=== PATIENT | female | born 1945 | race Caucasian/White ===

== ENCOUNTER 2017-08-28 13:49 | Inpatient (IN) | payer MEDICARE, OTHER ==
[~2017-08-28] VITALS: Ht 160 cm; Wt 39.0 kg
[2017-08-28 14:52] LABS: BASOPHILS % (AUTO) 0.6 % (0.0-2.0); EOSINOPHILS % (AUTO) 0.1 % (0.0-7.0); HEMATOCRIT 38.7 % (31.2-41.9); HEMOGLOBIN 12.5 g/dL (10.9-14.3); LYMPHOCYTES # (AUTO) 1.2 K/uL (20.0-40.0); LYMPHOCYTES % (AUTO) 13.8 % (20.5-51.5); MEAN CORPUSCULAR HEMOGLOBIN 30.3 uug (24.7-32.8); MEAN CORPUSCULAR HGB CONC 32 g/dL (32.3-35.6); MEAN CORPUSCULAR VOLUME 94.2 fL (75.5-95.3); MONOCYTES # (AUTO) 0.7 K/uL (2.0-10.0); NEUTROPHILS # (AUTO) 6.8 K/uL (1.8-8.9); NEUTROPHILS % (AUTO) 77.5 % (38.5-71.5); PLATELET COUNT (AUTO) 260 K/uL (179-408); RED BLOOD CELL COUNT(AUTO) 4.11 MIL/uL (3.63-4.92); WHITE BLOOD COUNT (AUTO) 8.8 K/uL (3.8-11.8)
[2017-08-28 14:54] LABS: CARBON DIOXIDE 25 mmol/L (21-32); CHLORIDE 101 mmol/L (98-107); CREATININE 1.1 mg/dL (0.6-1.3); GLUCOSE 80 mg/dL (74-106); POTASSIUM 5.4 mmol/L (3.5-5.1); UREA NITROGEN, BLOOD 23 mg/dL (7-18)
[2017-08-28 14:59] LABS: ALANINE AMINOTRANSFERASE 18 U/L (14-59); ALKALINE PHOSPHATASE 119 U/L (50-136); ASPARTATE AMINOTRANSFERASE 22 U/L (15-37); BILIRUBIN,DIRECT 0.1 mg/dL (0.0-0.2); BILIRUBIN,TOTAL 0.3 mg/dL (0.2-1.0); TOTAL PROTEIN, SERUM 7.7 g/dL (6.4-8.2)
[2017-08-28 15:00] LABS: ACETAMINOPHEN < 2.0 ug/mL (10-30)
[2017-08-28 15:13] LABS: ETHANOL < 3 MG/DL (0-0)
[2017-08-28 17:15] VITALS: BP 116/70
[2017-08-28] MEDS ORDERED: CLONAZEPAM 0.5 MG TABLET PO PRN (17:15)
[2017-08-28] MEDS ORDERED: MAG HYDROX/AL HYDROX/SIMETH 30 ML LIQUID UDC PO PRN (17:15)
[2017-08-28] MEDS ORDERED: MAGNESIUM HYDROXIDE 30 ML LIQUID UDC PO PRN (17:15)
[2017-08-28] MEDS ORDERED: IPRA12.9 IH (18:34)
[2017-08-28] MEDS ORDERED: MORP30TA59 PO (18:34)
[2017-08-28] MEDS ORDERED: OMEP40CA37 PO (18:34)
[2017-08-28] MEDS ORDERED: ALBU18HF2 IH (18:34)
[2017-08-28 19:30] VITALS: BP 121/78
[2017-08-28] MEDS ORDERED: IPRATROPIUM BROMIDE 0.5 MG/2.5 ML NEBU NEB PRN (20:30)
[2017-08-28] MEDS ORDERED: ALBUTEROL SULFATE 8 GM HFA.AER.AD IH PRN (20:30)
[2017-08-28] MEDS ORDERED: ALBUTEROL SULFATE 2.5 MG/ 0.5 ML NEBU NEB PRN (20:45)
[2017-08-28] MEDS: MORPHINE SULFATE SR 15 MG TABLET.SA PO SCH (21:25)
[2017-08-28] MEDS: TEMAZEPAM 7.5 MG CAPSULE PO PRN (22:46)
[2017-08-29] MEDS: PANTOPRAZOLE SODIUM 40 MG TABLET.DR PO SCH (06:20)
[2017-08-29] MEDS: MORPHINE SULFATE SR 15 MG TABLET.SA PO SCH ×3 (06:20→21:23)
[2017-08-29 07:30] VITALS: BP 111/64
[2017-08-29] MEDS: NICOTINE 14 MG/24HR PATCH TD SCH (09:00)
[2017-08-29] MEDS ORDERED: MORPHINE SULFATE SR 30 MG TABLET.SA PO SCH (09:00)
[2017-08-29 15:00] VITALS: BP 124/86
[2017-08-29 19:57] VITALS: BP 120/90
[2017-08-29] MEDS: OLANZAPINE ZYDIS 5 MG TAB.RAPDIS PO SCH (21:14)
[2017-08-30] MEDS: MORPHINE SULFATE SR 15 MG TABLET.SA PO SCH ×3 (06:12→21:34)
[2017-08-30] MEDS: PANTOPRAZOLE SODIUM 40 MG TABLET.DR PO SCH (06:13)
[2017-08-30 09:00] VITALS: BP 130/76
[2017-08-30] MEDS: APIXABAN 5 MG TABLET PO SCH ×2 (09:00→17:00)
[2017-08-30] MEDS: NICOTINE 14 MG/24HR PATCH TD SCH (09:31)
[2017-08-30 16:53] VITALS: BP 105/83
[2017-08-30 20:00] VITALS: BP 117/82
[2017-08-30] MEDS: OLANZAPINE ZYDIS 5 MG TAB.RAPDIS PO SCH (21:34)
[2017-08-30] MEDS: TEMAZEPAM 7.5 MG CAPSULE PO PRN (22:21)
[2017-08-31] MEDS: PANTOPRAZOLE SODIUM 40 MG TABLET.DR PO SCH (06:11)
[2017-08-31] MEDS: MORPHINE SULFATE SR 15 MG TABLET.SA PO SCH ×3 (06:12→22:00)
[2017-08-31 07:30] VITALS: BP 110/80
[2017-08-31] MEDS: APIXABAN 5 MG TABLET PO SCH ×3 (08:18→17:00)
[2017-08-31] MEDS: NICOTINE 14 MG/24HR PATCH TD SCH (09:00)
[2017-08-31 15:29] VITALS: BP 123/74
[2017-08-31] MEDS: OLANZAPINE ZYDIS 5 MG TAB.RAPDIS PO SCH (17:00)
[2017-08-31 20:15] VITALS: BP 136/93
[2017-08-31] MEDS: TEMAZEPAM 7.5 MG CAPSULE PO PRN (23:21)
[2017-09-01] MEDS: MORPHINE SULFATE SR 15 MG TABLET.SA PO SCH ×3 (06:02→22:23)
[2017-09-01] MEDS: PANTOPRAZOLE SODIUM 40 MG TABLET.DR PO SCH (06:10)
[2017-09-01 08:00] VITALS: BP 108/81
[2017-09-01] MEDS: OLANZAPINE ZYDIS 5 MG TAB.RAPDIS PO SCH ×2 (09:00→17:00)
[2017-09-01] MEDS: APIXABAN 5 MG TABLET PO SCH ×2 (09:00→17:00)
[2017-09-01] MEDS: NICOTINE 14 MG/24HR PATCH TD SCH (09:27)
[2017-09-01 13:56] VITALS: BP 138/78
[2017-09-01 16:32] VITALS: BP 112/89
[2017-09-01 20:00] VITALS: BP 138/89
[2017-09-01] MEDS: TEMAZEPAM 7.5 MG CAPSULE PO PRN (23:14)
[2017-09-02] MEDS: MORPHINE SULFATE SR 15 MG TABLET.SA PO SCH ×3 (05:40→22:34)
[2017-09-02] MEDS: PANTOPRAZOLE SODIUM 40 MG TABLET.DR PO SCH (06:04)
[2017-09-02 07:30] VITALS: BP 108/84
[2017-09-02] MEDS: NICOTINE 14 MG/24HR PATCH TD SCH (08:45)
[2017-09-02] MEDS: OLANZAPINE ZYDIS 5 MG TAB.RAPDIS PO SCH ×3 (08:45→17:37)
[2017-09-02] MEDS: APIXABAN 5 MG TABLET PO SCH ×3 (08:45→17:37)
[2017-09-02 16:37] VITALS: BP 125/95
[2017-09-02] MEDS: OXYCODONE HCL 5 MG TABLET PO PRN (18:41)
[2017-09-02 20:13] VITALS: BP 122/80
[2017-09-02] MEDS: TEMAZEPAM 7.5 MG CAPSULE PO PRN (22:34)
[2017-09-03] MEDS: PANTOPRAZOLE SODIUM 40 MG TABLET.DR PO SCH (06:52)
[2017-09-03 07:30] VITALS: BP 126/91
[2017-09-03] MEDS: MORPHINE SULFATE SR 15 MG TABLET.SA PO SCH ×4 (07:49→22:05)
[2017-09-03] MEDS: APIXABAN 5 MG TABLET PO SCH ×2 (09:29→16:50)
[2017-09-03] MEDS: OLANZAPINE ZYDIS 5 MG TAB.RAPDIS PO SCH ×2 (09:29→16:50)
[2017-09-03] MEDS: NICOTINE 14 MG/24HR PATCH TD SCH (09:29)
[2017-09-03] MEDS: OXYCODONE HCL 5 MG TABLET PO PRN (11:27)
[2017-09-03 16:57] VITALS: BP 98/76
[2017-09-03] MEDS ORDERED: APIXABAN 5 MG TABLET PO SCH (17:00)
[2017-09-03] MEDS: MORPHINE SULFATE IR 30 MG TABLET PO PRN (17:34)
[2017-09-03 20:07] VITALS: BP 115/78
[2017-09-03] MEDS: TEMAZEPAM 7.5 MG CAPSULE PO PRN (23:12)
[2017-09-04] MEDS: MORPHINE SULFATE IR 30 MG TABLET PO PRN ×2 (02:42→11:10)
[2017-09-04] MEDS: MORPHINE SULFATE SR 15 MG TABLET.SA PO SCH (06:00)
[2017-09-04] MEDS: PANTOPRAZOLE SODIUM 40 MG TABLET.DR PO SCH (06:00)
[2017-09-04 07:30] VITALS: BP 101/75
[2017-09-04] MEDS: NICOTINE 14 MG/24HR PATCH TD SCH (08:33)
[2017-09-04] MEDS: OLANZAPINE ZYDIS 5 MG TAB.RAPDIS PO SCH (08:33)
[2017-09-04] MEDS: APIXABAN 5 MG TABLET PO SCH (08:34)
[2017-09-04 08:39] LABS: CARBON DIOXIDE 29 mmol/L (21-32); CHLORIDE 100 mmol/L (98-107); CREATININE 1.1 mg/dL (0.6-1.3); GLUCOSE 112 mg/dL (74-106); POTASSIUM 5.1 mmol/L (3.5-5.1); UREA NITROGEN, BLOOD 57 mg/dL (7-18)
[2017-09-04] MEDS ORDERED: BENAZEPRIL HCL 5 MG TABLET PO SCH (09:00)
== END 2017-09-04 13:45 | disposition home or self-care (01) | DRG 885 ==
LOC: ER 13:52 → GPS 16:44
PROVIDERS: ADMIT Internal Medicine; ATTEND Psychiatry & Neurology Psychiatry
DX: F29 Unspecified psychosis not due to a substance or known physiological condition (principal); N18.9 Chronic kidney disease, unspecified; I13.0 Hypertensive heart and chronic kidney disease with heart failure and stage 1 through stage 4 chronic kidney disease, or unspecified chronic kidney disease; Z68.1 Body mass index [BMI] 19.9 or less, adult; E46 Unspecified protein-calorie malnutrition; I50.9 Heart failure, unspecified; F17.210 Nicotine dependence, cigarettes, uncomplicated; F32.9 Major depressive disorder, single episode, unspecified; F41.9 Anxiety disorder, unspecified; G89.4 Chronic pain syndrome; I48.0 Paroxysmal atrial fibrillation; I25.10 Atherosclerotic heart disease of native coronary artery without angina pectoris; K21.9 Gastro-esophageal reflux disease without esophagitis; J44.9 Chronic obstructive pulmonary disease, unspecified; M19.90 Unspecified osteoarthritis, unspecified site; M79.7 Fibromyalgia; Z73.6 Limitation of activities due to disability; Z88.2 Allergy status to sulfonamides; Z87.11 Personal history of peptic ulcer disease; R79.89 Other specified abnormal findings of blood chemistry; M51.9 Unspecified thoracic, thoracolumbar and lumbosacral intervertebral disc disorder
CPT/HCPCS: 36415; 70030-TC; 85025; 85730; 93005; A4663; G0480; G0480-TC